=== PATIENT | female | born 1955 | race Caucasian/White ===

== ENCOUNTER 2020-12-30 06:50 | Outpatient (CLI) | payer OTHER ==
[2020-12-30] MEDS ORDERED: REGADENOSON 0.4 MG/5 ML SYRINGE ONE (07:08)
== END 2020-12-30 23:59 | disposition home or self-care (01) ==
LOC: CFH 06:50
PROVIDERS: ATTEND Family Medicine
DX: I08.8 Other rheumatic multiple valve diseases (principal); R94.31 Abnormal electrocardiogram [ECG] [EKG]; I27.20 Pulmonary hypertension, unspecified
CPT/HCPCS: 78452; 93017; 93306; A9502; J2785